=== PATIENT | female | born 1995 | race Caucasian/White ===

== ENCOUNTER 2023-05-07 17:17 | Emergency (ER) | payer OTHER, SELFPAY ==
--- NOTE | ~2023-05-07 | XR_ITS ---
EXAMINATION: XR CHEST CLINICAL INFORMATION: Cough COMPARISON: None available. TECHNIQUE: Frontal view of the chest was obtained. FINDINGS: No significant abnormality is noted involving the heart, lungs, mediastinum, bony thorax or soft tissues. XR/XR chest 1V IMPRESSION: Unremarkable examination.
[2023-05-07 17:53] VITALS: BP 119/63; PULSE 111; RESP 18; TEMP 37; O2SAT 98; BMI 19.6
--- NOTE | 2023-05-07 17:55 | ED_ITS ---
HPI - URI/Sore Throat General Chief Complaint: Upper Respiratory Symptoms Stated Complaint: fever, chills, cough Time Seen by Provider: 05/07/23 18:16 Source: patient and family Mode of arrival: ambulatory Limitations: no limitations History of Present Illness HPI Narrative: 28-year-old female with a past medical history of mononucleosis presents to the emergency department, with her mother, for concerns for cough, fever, and chills starting today. She states she was diagnosed with mono 2 months ago and has been having intermittent sore throats with difficulty swallowing. She reports she recently finished a course of steroids. She denies any difficulty swallowing or tolerating secretions, change in phonation, shortness of breath, chest pain, headache, vision changes. Pertinent positives and negatives discussed in HPI Related Data Previous Rx's Medication Instructions Recorded benzonatate 100 mg capsule 100 mg PO TID PRN cough #14 caps 05/07/23 Allergies Allergy/AdvReac Type Severity Reaction Status Date / Time lactose Allergy Gastrointestinal Verified 05/07/23 17:56 Upset diphenhydramine AdvReac Rash Verified 05/07/23 17:56 [From Benadryl] Review of Systems Review of Systems: Yes all other systems are reviewed and are negative [facility] Social History Social History Advance Directives: No Advance Directives Information Provided: No Physical Exam Vital Signs: Vital Signs: Last Vital Signs Temp 98.6 F 05/07/23 17:53 Pulse 111 H 05/07/23 17:53 Resp 18 05/07/23 17:53 BP 119/63 05/07/23 17:53 Pulse Ox 98 05/07/23 17:53 O2 Del Method Room Air 05/07/23 17:53 BMI result Body Mass Index 19.6 Nursing notes and vital signs reviewed. GENERAL APPEARANCE: A&0 x 4, generally well appearing, no acute distress HENMT: Normal to inspection, atraumatic, face symmetrical. Normal external ears, nose, and oropharynx clear. EYE: PERRLA, EOM intact, structures appear normal NECK: Supple without stiffness or restricted ROM. HEART: Normal rate and regular rhythm, normal S1/S2, no M/R/G LUNGS: LS CTA, moving air well. Able to speak in complete sentences. No crackles, wheezes, or rhonchi auscultated BACK: No CVAT, no obvious deformity EXTREMITIES: Moving all extremities without difficulty. Normal capillary refill. NEUROLOGICAL: Alert and oriented, moving all 4 extremities with equal strength. CN not formally tested but appearing grossly intact. Observed to ambulate with normal gait. Cognition normal SKIN: Warm and dry without any lesions, rash, or visible sores Medical Decision Making Medical Decision Making MDM Narrative: Old records reviewed for previous imaging, lab studies, ECGs, and notes. Additional HPI obtained from patient's mother. Patient was assessed the emergency department with no acute distress or toxicity noted. Chest x-ray and uses Trelegy negative for evidence of infection. Patient's symptoms are consis tent WITH viral upper respiratory infection. Benzonatate sent to patient's preferred pharmacy for further management of cough. Patient educated to follow- up with ENT regarding her concerns for throat discomfort. Patient is safe for discharge at this time with plan for [id number] Tylenol and/or NSAID such as ibuprofen or naproxen for fever/discomfort with dosing as per packaging. HPI, PE, diagnostics, and plan discussed with patient and family with no unanswered questions at this time. Strict return precautions given to return to the emergency department with new, worsening, or concerning emergent symptoms. Recommended to follow-up with there primary care provider in 24-48 hours for further treatment and management. Differential Diagnosis Differential Diagnoses: The differential diagnosis associated with the presentation includes But not limited to viral URI, pneumonia, TELLER HEAD, mono, sepsis, malignancy Lab Data Labs: Lab Results 05/07/23 Range/Units 18:13 Influenza Type A (PCR) NEGATIVE (Negative) Influenza Type B (PCR) NEGATIVE (Negative) RSV RNA Qual (PCR) NEGATIVE (Negative) SARS-CoV-2 RNA (RT-PCR) NEGATIVE (Negative) Discharge Plan Discharge Clinical Impression: Upper respiratory infection Patient Disposition: Home, Self-Care Instructions: Upper Respiratory Infection (ED) Additional Instructions: Your seen in the emergency department for concerns of increased coughing, fever, and chills starting today. A chest x-ray was completed which showed no evidence of pneumonia. Your nasal swab is negative for COVID, flu, and RSV. Your symptoms are consistent with a viral upper respiratory infection. You may manage symptoms with [id number] cough/cold medications and please follow- up with your primary care provider. You are safe for discharge at this time with plan for management of fever or discomfort with [id number] Tylenol and/or NSAID such as ibuprofen or naproxen with dosing as per packaging. Please return to the emergency department with new, worsening, or concerning emergent symptoms. Recommended to follow-up with your primary care provider in 24-48 hours for further treatment and management. Thank you for choosing [facility]. Prescriptions: New benzonatate 100 mg capsule 100 mg PO TID PRN (Reason: cough) Qty: 14 0RF Referrals: Wilfrido Bates [Physician] - Physician,Unknown J [Physician] - Stand Alone Forms: Work/School Release Print Language: Persian
[2023-05-07 19:00] LABS: Influenza A PCR NEGATIVE (Negative); Influenza B PCR NEGATIVE (Negative); Resp Syncy Virus RNA Qual PCR NEGATIVE (Negative); SARS COV2 PCR INHOUSE NEGATIVE (Negative)
[2023-05-07 20:16] VITALS: BP 106/71; PULSE 83; RESP 20; TEMP 36.9; O2SAT 96
== END 2023-05-07 20:50 | disposition home or self-care (01) ==
PROVIDERS: Nurse Practitioner Family; Emergency Provider Internal Medicine; PCP Nurse Practitioner Family
DX: J06.9 Acute upper respiratory infection, unspecified (principal); Z11.52 Encounter for screening for COVID-19; Z20.828 Contact with and (suspected) exposure to other viral communicable diseases
CPT/HCPCS: 0241U; 71045; 99283